=== PATIENT | female | born 1985 | race Caucasian/White ===

== ENCOUNTER 2020-08-24 09:09 | Emergency (ER) | payer BC ==
[~2020-08-24] VITALS: Ht 154.9 cm; Wt 54.2 kg
[2020-08-24 10:06] LABS: CLARITY,URINE CLEAR (Clear); COLOR,URINE STRAW (Yellow); GLUCOSE, URINE NEGATIVE (Neg); KETONES,URINE NEGATIVE (Neg); LEUKOCYTE ESTERASE ,URINE NEGATIVE (Neg); NITRITES, URINE NEGATIVE (Neg); OCCULT BLOOD,URINE NEGATIVE (Neg); PH,URINE 5.5 (4.8-8.0); PROTEIN,URINE NEGATIVE (Neg); UROBILINOGEN,URINE 0.2 E.U/dL (0.2-1.0)
[2020-08-24 10:11] LABS: UA COLLECTION TYPE CLN CATCH MIDSTREAM
[2020-08-24 10:13] LABS: URINE HCG NEGATIVE (NEG)
[2020-08-24 10:44] LABS: BASOPHILS % (AUTO) 0.9 % (0-1); EOSINOPHILS # (AUTO) 0.1 X10'3 (0-0.9); EOSINOPHILS % (AUTO) 1.6 % (0-6); HEMATOCRIT 36.7 % (35.0-45.0); HEMOGLOBIN 12.5 g/dl (12.0-16.0); LYMPHOCYTES # (AUTO) 1.4 X10'3 (1.1-4.8); LYMPHOCYTES % (AUTO) 26.2 % (21-51); MEAN CORPUSCULAR HEMOGLOBIN 32.9 PG (27.0-31.0); MEAN CORPUSCULAR VOLUME 96.7 FL (78-98); MONOCYTES # (AUTO) 0.3 X10'3 (0-0.9); MONOCYTES % (AUTO) 5.4 % (2-12); NEUTROPHILS # (AUTO) 3.6 X10'3 (1.8-7.7); NEUTROPHILS % (AUTO) 65.9 % (42-75); PLATELET COUNT 227 X10'3 (140-440); RED BLOOD COUNT 3.79 X10'6 (4.20-5.60); RED CELL DISTRIBUTION WIDTH 13.9 % (11.5-14.5); WHITE BLOOD COUNT 5.5 X10'3 (4.5-11.0)
--- NOTE | 2020-08-24 10:44 | NUR ---
To CT at this time via wheelchair.
[2020-08-24] MEDS ORDERED: iohexol 300mg/ml 100ml inj. ONE (10:46)
[2020-08-24 11:22] LABS: ALANINE AMINOTRANSFERASE 20 U/L (12-78); ALBUMIN 3.7 G/DL (3.4-5.0); ALBUMIN/GLOBULIN RATIO 1.3 (1.1-1.5); ALKALINE PHOSPHATASE 60 IU/L (46-116); ANION GAP 7 (8-16); ASPARTATE AMINO TRANSFERASE 20 U/L (10-37); BILIRUBIN,TOTAL 0.4 MG/DL (0.1-1.0); BLOOD UREA NITROGEN 11 MG/DL (7-18); BUN/CREATININE RATIO 19.6 (6.6-38.0); CALCIUM 8.1 MG/DL (8.5-10.1); CHLORIDE 105 MMOL/L (99-107); CREATININE 0.56 MG/DL (0.40-0.90); GLUCOSE 82 MG/DL (70-104); POTASSIUM 3.5 MMOL/L (3.5-5.1); SODIUM 141 MMOL/L (135-145); TOTAL CARBON DIOXIDE 29.1 MMOL/L (24-32); TOTAL PROTEIN 6.5 G/DL (6.4-8.2); eGFR > 90 ML/MIN
[2020-08-24 11:28] VITALS: BP 102/69
[2020-08-24] MEDS ORDERED: DOCU100C40 PO (12:11)
== END 2020-08-24 12:28 | disposition home or self-care (01) ==
LOC: ER 09:10
DX: K59.00 Constipation, unspecified (principal); N83.201 Unspecified ovarian cyst, right side; R05 Cough; G89.29 Other chronic pain; F17.200 Nicotine dependence, unspecified, uncomplicated; Z98.890 Other specified postprocedural states; Z79.899 Other long term (current) drug therapy
CPT/HCPCS: 36415; 74177; 80053; 81003; 81025; 85025; 99285; Q9967

== ENCOUNTER 2024-01-24 15:23 | Emergency (ER) | payer MEDICAID, OTHER ==
[~2024-01-24] VITALS: Ht 154.9 cm; Wt 54.0 kg
[~2024-01-24 15:23] MED LIST: DOCU100C40 PO
[2024-01-24 19:37] VITALS: BP 123/74; PULSE 84; RESP 17; TEMP 97.9; O2SAT 100
== END 2024-01-24 19:42 | disposition home or self-care (01) ==
LOC: ER 15:24
DX: S40.012A Contusion of left shoulder, initial encounter (principal); M54.2 Cervicalgia; M54.50 Low back pain, unspecified; T76.11XA Adult physical abuse, suspected, initial encounter; G89.29 Other chronic pain; Z98.890 Other specified postprocedural states; Z79.899 Other long term (current) drug therapy; Y08.89XA Assault by other specified means, initial encounter; Y93.89 Activity, other specified; Y92.89 Other specified places as the place of occurrence of the external cause; Y99.8 Other external cause status
CPT/HCPCS: 72040; 72100; 73030; 99284

== ENCOUNTER 2024-02-03 18:04 | Emergency (ER) | payer MEDICAID ==
[~2024-02-03] VITALS: Ht 154.9 cm; Wt 54.0 kg
[2024-02-03 18:08] VITALS: BP 119/80; PULSE 115; TEMP 97.7; O2SAT 99
[2024-02-03] MEDS ORDERED: CYCL-1 PO (19:19)
[2024-02-03] MEDS: triamcinolone acetonide 40mg/ml inj IM ONE (19:37)
[2024-02-03] MEDS: ketorolac trometh 30MG/ML vial 30 MG/ML VIAL IM ONE (19:37)
[2024-02-03 19:45] VITALS: RESP 18
== END 2024-02-03 19:46 | disposition home or self-care (01) ==
LOC: ER 18:04
DX: M54.12 Radiculopathy, cervical region (principal); Z79.899 Other long term (current) drug therapy
CPT/HCPCS: 96372; 99284; J1885; J3301

== ENCOUNTER 2024-08-16 21:43 | Emergency (ER) | payer MEDICAID ==
[~2024-08-16] VITALS: Ht 154.9 cm; Wt 61.4 kg
[~2024-08-16 21:43] MED LIST changes: +CYCL-1 PO
[2024-08-16 21:47] VITALS: BP 144/88; PULSE 88; RESP 18; O2SAT 98
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
[2024-08-16] MEDS ORDERED: LYR75C PO (22:58)
[2024-08-16 23:11] VITALS: TEMP 98.5
[2024-08-16] MEDS: pregabalin 75mg capsule PO ONE (23:16)
== END 2024-08-16 23:19 | disposition home or self-care (01) ==
LOC: ER 21:44
DX: R56.9 Unspecified convulsions (principal); Z76.0 Encounter for issue of repeat prescription; Z79.899 Other long term (current) drug therapy
CPT/HCPCS: 99283

== ENCOUNTER 2024-11-22 22:11 | Emergency (ER) | payer MEDICAID ==
[~2024-11-22] VITALS: Ht 157.5 cm; Wt 63.2 kg
[~2024-11-22 22:11] MED LIST changes: +LYR75C PO
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
[2024-11-22 22:59] LABS: MEAN PLATELET VOLUME 8.4 FL (7.4-10.4); RED CELL DISTRIBUTION WIDTH 13.6 % (11.5-14.5)
[2024-11-22 23:23] LABS: LEUKOCYTE ESTERASE ,URINE NEGATIVE (Neg); NITRITES, URINE NEGATIVE (Neg); OCCULT BLOOD,URINE NEGATIVE (Neg); UA COLLECTION TYPE CLN CATCH MIDSTREAM
[2024-11-22 23:24] LABS: CREATININE 0.62 MG/DL (0.40-0.90); ETHANOL 29 MG/DL (<10); TOTAL CARBON DIOXIDE 27.6 MMOL/L (24-32); eCRCL 96 ML/MIN; eGFR > 90 ML/MIN
[2024-11-22 23:26] LABS: URINE HCG NEGATIVE (NEG)
[2024-11-23] LABS: URINE AMPHETAMINE SCREEN NEGATIVE (Neg); URINE BARBITUATE SCREEN NEGATIVE (Neg); URINE BENZODIAZEPINES SCREEN NEGATIVE (Neg); URINE CANNABINOID SCREEN NEGATIVE (Neg); URINE COCAINE SCREEN NEGATIVE (Neg); URINE METHADONE SCREEN NEGATIVE (Neg); URINE OPIATE SCREEN NEGATIVE (Neg); URINE PHENCYCLIDINE SCREEN NEGATIVE (Neg)
[2024-11-23 11:21] VITALS: BP 128/71; PULSE 68; RESP 13; TEMP 97.9; O2SAT 98
== END 2024-11-23 11:24 | disposition home or self-care (01) ==
LOC: ER 22:12
DX: F29 Unspecified psychosis not due to a substance or known physiological condition (principal); G89.29 Other chronic pain; Z79.899 Other long term (current) drug therapy; Z20.822 Contact with and (suspected) exposure to COVID-19; Z98.890 Other specified postprocedural states
CPT/HCPCS: 36415; 80048; 80305; 80320; 81003; 81025; 84443; 85025; 87811; 99285

== ENCOUNTER 2025-03-12 13:12 | Emergency (ER) | payer MEDICAID ==
[~2025-03-12] VITALS: Ht 154.9 cm; Wt 64.3 kg
[2025-03-12 13:18] VITALS: BP 119/79; PULSE 82; RESP 18; TEMP 98.4; O2SAT 96
[2025-03-12] MEDS ORDERED: METR-159 PO (16:06)
--- NOTE | 2025-03-12 16:06 | Physician Documentation ---
History of Present Illness ~ Chief Complaint: Vaginal discharge Stated Complaint: INFECTION Time Seen by MD: 13:58 OK to notify your PCP?: Yes Source: patient Mode of Arrival: POV Exam Limitations: no limitations HPI Patient reports having vaginal discharge, irritation and fall odor for the past 2 days. She reports that she has a history of bacterial vaginosis and states that this feels similar. She reports that the discharge is a watery yellow color. She denies any urinary symptoms or vaginal pain. Reports that she is just finishing up her menstrual cycle but it has been normal so far. Last Menstrual Period: Mar 04, 2025 Medication Reconciliation Allergies: Coded Allergies: No Known Allergies (Unverified , 03/12/25) Scheduled Cyclobenzaprine* (Cyclobenzaprine*), 1 TAB PO HS Docusate Sodium (Docusate Sodium), 1 CAP PO Q12H Metronidazole* (Flagyl*), 1 TAB PO Q12H Pregabalin (LYRICA capsule), 1 CAP PO TID Past Medical History Past Medical History: Chronic Pain Past Surgical History: orthopedic surgeries Last Menstrual Period: Mar 04, 2025 Smoking Status: Current every day smoker Alcohol Use: None Drug Use: none Review of Systems All Other Systems at this time: Reviewed and Negative Physical Exam Vital Signs: RN Vital Signs have been reviewed: Yes, Temperature: 98.4, Source: Temporal, Heart Rate: 82, Respiratory Rate: 18, BP: 119/79, Pulse Oximetry: 96, Weight: 64.300 Oxygen Flow Rate: 0 Pulse Oximetry Reflects: adequate oxygenation Physical Exam General: Alert, no distress. HEENT: No injection, moist mucous membranes. Neck: Full range of motion. Respiratory: No respiratory distress, equal chest rise and fall. Bilateral lungs clear to auscultation. Chest: No accessory muscle use. Cardiovascular: Regular rate and rhythm. Gastrointestinal: Nondistended. Nontender, bowel sounds present. Back: No CVA tenderness Extremities: Normal range of motion, no deformity. Neurologic: Oriented x4. Psychiatric: Normal mood and affect. Skin: Normal color, warm and dry. Progress Results/Orders Reviewed/noted all lab results: Yes Results/Orders Completed Orders - JUAN ALBERTO PALMER QUANTITATIVE CONSULTANT Wet Prep (03/12/25 15:04) Estela Prep (Fungal Smear) (03/12/25 15:04) Vital Signs 03/12/25 13:18 Temp 98.4 Pulse 82 Resp 18 B/P (MAP) 119/79 Pulse Ox 96 O2 Flow Rate 0 Microbiology Date/Time Source Procedure Growth Status 03/12/25 15:18 Genital Vaginal ESTELA Preparation - Final Complete Medical Decision Making Additional information obtaine: old records Findings Patient presents for abnormal vaginal discharge x2 days. We did a wet mount vaginal swab which revealed no clue cells or yeast but there is trichomoniasis present. I placed the patient on metronidazole, prescription sent to pharmacy. Educated patient that both her and her partner need treated and to abstain from intercourse until finishing all antibiotics to prevent reinfection. She verbalizes understanding. Urinary Diff Dx:Considerations: Include: Pyelonephritis, Urinary retention Genital Diff Dx:Considerations: Include: Trauma, Vaginitis(osis)-Bacterial, Vaginitis(osis)-Candidal, Other Departure Disposition: HOME / SELF CARE / HOMELESS Impression: Primary Impression: Trichomonal vaginitis Condition: Stable Discharge Instructions: Trichomoniasis Additional Instructions: Take all antibiotics as prescribed. Please refrain from sexual intercourse until you have finish her treatment as well as her partner has been fully treated to prevent reinfection. Return back here for any new or worsening symptoms. Referrals: NO PRIMARY CARE PROVIDER (PCP) Prescriptions Metronidazole* (Flagyl*) 500 Mg Tablet 1 TAB PO Q12H for 7 Days, #14 TAB Prov: JUAN ALBERTO PALMER 03/12/25 Education Educated: Patient Educated regarding: diagnosis, treatment, prognosis, need for follow up Additional Comment Medical Screen Exam This patient recieved a medical screening examination. After reviewing the individual's medical complaints with presenting symptoms and performing an appropriate physical examination, it was determined that no immediate life- threatening emergency medical condition is present. This individual is also not a women having contractions. Signature Scribe Signature: . Attestation: Scribed for Juan Alberto Palmer by Juan Alberto Pizano NP . 03/12/25 17:52 Parts of this note were created using [employer] voice recognition software program. While efforts were made to correct any mistakes made by this voice recognition software program, nonsensical phrases may remain in this note. In addition, there may be errors and syntax, grammar, content and spelling. JUAN ALBERTO PALMER Mar 12, 2025 16:06
== END 2025-03-12 15:45 | disposition home or self-care (01) ==
LOC: ER 13:13
DX: A59.01 Trichomonal vulvovaginitis (principal); F17.200 Nicotine dependence, unspecified, uncomplicated; G89.29 Other chronic pain; Z79.899 Other long term (current) drug therapy; Z98.890 Other specified postprocedural states
CPT/HCPCS: 87210; 99283; Q0112